=== PATIENT | male | born 1975 | race American Indian/Alaskan Native ===

== ENCOUNTER 2017-07-09 12:55 | Emergency (ER) | payer SELFPAY ==
[2017-07-09 13:34] VITALS: BP 164/104
[2017-07-09] MEDS ORDERED: NORCO 5/325 PO ONE (14:38)
[2017-07-09] MEDS ORDERED: CATAPRES PO ONE (14:38)
--- NOTE | 2017-07-09 14:50 | XRay Report ---
LEFT WRIST, 2 views: HISTORY: Left wrist pain. AP and lateral views demonstrate the carpal bones to be well mineralized with well preserved bony mineralization and interosseous joint spaces. The carpal and adjacent articular bones have normal contours. The surrounding soft tissues are unremarkable. IMPRESSION: No abnormality detected.
--- NOTE | 2017-07-09 15:11 | Emergency Department Report ---
Chief Complaint: Extremity Injury, Upper Stated Complaint: HAND INJURY Time Seen by Provider: 07/09/17 14:12 - HPI History of Present Illness: The patient is a 41-year-old male who presents for evaluation of left wrist pain. The patient states that he twisted his wrist while lifting furniture yesterday. He complains of constant severe pain since his injury, throbbing in quality, exacerbated with twisting of the wrist. He denies pins change, so the risks, redness, swelling, color change, loss of sensation or motor function in the hand distal to his injury. - Exam Vital Signs: Vital Signs 07/09/17 13:31 Temperature 98 F Pulse Rate 74 Respiratory 18 Rate Blood Pressure 164/104 O2 Sat by Pulse 96 Oximetry MSE screening note: Focused history and physical exam performed. Due to findings the following was ordered: ED Disposition for MSE Condition: Stable Referrals: PRIMARY CARE, [Primary Care Provider] - 3-5 Days
--- NOTE | 2017-07-09 15:19 | Emergency Department Report ---
Upper Extremity - HPI Chief Complaint: Extremity Injury, Upper Stated Complaint: HAND INJURY Time Seen by Provider: 07/09/17 14:12 Upper Extremity: Left Wrist Occurred When: 1 Day Mechanism: Hyperflexion, Twist Symptoms: Yes Pain with Movement, Yes Limited Range of Movement, Yes Swelling, Yes Bruising/Ecchymosis, No Deformity, No Numbness, No Laceration or Abrasion Other History: 41-year-old [place] male comes in for left wrist pain that started yesterday. Patient reports he was lifting furniture and it appears that his left wrist hyperextended. He reports that he has tried over-the- counter ibuprofen which she was only taken 400 mg. And a trauma to all last night. He reports neither med helped with this pain. He did report wearing a wrist brace help with this pain the most. Patient has no past medical history currently takes no medications has no known drug allergies. ED Review of Systems ROS: Stated complaint: HAND INJURY Other details as noted in HPI Constitutional: denies: chills, fever Eyes: denies: eye pain, eye discharge, vision change ENT: denies: ear pain, throat pain Respiratory: denies: cough, shortness of breath, wheezing Cardiovascular: denies: chest pain, palpitations Endocrine: no symptoms reported Gastrointestinal: denies: abdominal pain, nausea, diarrhea Genitourinary: denies: urgency, dysuria Musculoskeletal: arthralgia (left wrist pain ). denies: back pain, joint swelling Skin: denies: rash, lesions Neurological: denies: headache, weakness, paresthesias Psychiatric: denies: anxiety, depression Hematological/Lymphatic: denies: easy bleeding, easy bruising ED Past Medical Hx - Social History Smoking Status: Unknown if ever smoked Substance Use Type: Alcohol - Medications Home Medications: Home Medications Medication Instructions Recorded Confirmed Last Taken Type Ibuprofen 800 mg PO Q8H #30 tablet 07/09/17 Unknown Rx Upper Extremity Exam - Exam General: Vital signs noted. No distress. Alert and acting appropriately. Shoulder Exam: No Shoulder Tenderness, No Clavicle Tenderness, No Normal Range of Motion in Shoulder, No Shoulder Deformity, No AC Joint Tenderness Arm Exam: No Arm/Humerus Tenderness, No Arm Deformity Wrist: Yes Wrist Tenderness, Yes Snuffbox Tenderness, Yes Pain with Axial Thumb Compression, No Normal ROM in Wrist, No Wrist Deformity Hand: No Hand Tenderness, No Hand Deformity, No Digit Tenderness, No Normal ROM in Digit(s), No Digit(s) Deformity, No Tendon Dysfunction CMS Exam: Yes Normal Distal Pulses, Yes Normal Capillary Refill, Yes Normal Distal Sensation, No Broken Skin ED Course Vital Signs 07/09/17 13:31 Temperature 98 F Pulse Rate 74 Respiratory 18 Rate Blood Pressure 164/104 O2 Sat by Pulse 96 Oximetry ED Medical Decision Making - Radiology Data LEFT WRIST, 2 views: HISTORY: Left wrist pain. AP and lateral views demonstrate the carpal bones to be well mineralized with well preserved bony mineralization and interosseous joint spaces. The carpal and adjacent articular bones have normal contours. The surrounding soft tissues are unremarkable. IMPRESSION: No abnormality detected. Transcribed By: TTR Dictated By: JONNY CROWE JR, MD Electronically Authenticated By: JONNY CROWE JR, MD Signed Date/Time: 07/09/17 1442 - Medical Decision Making Patient has been evaluated by this provider as well as Dr. Zamora. Discussed with patient that his x-ray of his wrist was negative. Discussed the patient and I will refer him to orthopedics since is still having pain with extension and flexion. Discussed the patient that he is under treating his pain with only ibuprofen 400. Discussed the patient needs to be taking ibuprofen 800. Also recommend for him to wear a wrist brace to his left arm. Patient verbalized understanding. Critical care attestation.: If time is entered above; I have spent that time in minutes in the direct care of this critically ill patient, excluding procedure time. ED Disposition Clinical Impression: Left wrist injury Qualifiers: Encounter type: initial encounter Qualified Code(s): S69.92XA - Unspecified injury of left wrist, hand and finger(s), initial encounter Disposition: DC-01 TO HOME OR SELFCARE Is pt being admited?: No Does the pt Need Aspirin: No Condition: Stable Instructions: Wrist Injury (ED) Additional Instructions: Please follow up with orthopedics. Please wear brace until follow-up with orthopedics. He can take ibuprofen 800 mg that I have prescribed. I recommended she eat with taking this medication. Prescriptions: Ibuprofen 800 mg PO Q8H #30 tablet Referrals: PRIMARY CARE, [Primary Care Provider] - 3-5 Days SAM PETERSON MD [Staff Physician] - 3-5 Days MINOR MOURA MD [Staff Physician] - 3-5 Days Forms: Work/School Release Form(ED)
== END 2017-07-09 16:00 | disposition home or self-care (01) ==
LOC: ED 12:55
DX: S69.92XA Unspecified injury of left wrist, hand and finger(s), initial encounter (principal); X58.XXXA Exposure to other specified factors, initial encounter; Y93.F2 Activity, caregiving, lifting; Y92.89 Other specified places as the place of occurrence of the external cause; Y99.8 Other external cause status
CPT/HCPCS: 99283

== ENCOUNTER 2017-09-11 09:05 | Emergency (ER) | payer SELFPAY ==
[2017-09-11 10:04] VITALS: BP 163/100
== END 2017-09-11 13:46 | disposition left against medical advice (07) ==
LOC: ED 09:05
DX: M25.562 Pain in left knee (principal); Z53.21 Procedure and treatment not carried out due to patient leaving prior to being seen by health care provider